=== PATIENT | male | born 1945 | race Caucasian/White ===

== ENCOUNTER → 2023-10-29 13:03 | Outpatient (REF) | payer OTHER, SELFPAY | LOC: RAD 13:03 | PROVIDERS: ATTENDING PHYSICIAN Thoracic Surgery (Cardiothoracic Vascular Surgery); FAMILY PHYSICIAN Nurse Practitioner Primary Care | DX: J90 Pleural effusion, not elsewhere classified (principal) | CPT/HCPCS: 71046 ==

== ENCOUNTER → 2024-02-25 12:28 | Outpatient (REF) | payer OTHER, SELFPAY ==
[2024-02-25 13:24] LABS: % Basophils 0.5 % (0-2); % Eosinophils 0.9 % (0-6); % Immature Granulocytes 0.3 % (0-0.5); % Lymphocytes 16.6 % (20.5-51.1); % Monocytes 10.7 % (1.7-9.3); Absolute Basophils 0.1 10^3/uL (0-0.2); Absolute Eosinophils 0.1 10^3/uL (0-0.7); Absolute Lymphocytes 1.8 10^3/uL (1.2-3.4); Absolute Monocytes 1.2 10^3/uL (0.1-0.6); Absolute Neutrophils 7.9 10^3/uL (1.4-6.5); Hematocrit 41.9 % (39.0-52.0); Hemoglobin 14.6 g/dL (13.0-18.0); Mean Corp Hgb Conc. 34.8 g/dL (33.0-37.0); Mean Corpuscular Hgb 31.2 pg (27.0-31.0); Mean Corpuscular Volume 89.5 fL (80.0-94.0); Mean Platelet Volume 9.8 fL (7.4-10.4); Nucleated Red Blood Cells % 0 % (-); Platelet Count 356 10^3/uL (130-400); Red Blood Cell Count 4.68 10^6/uL (4.70-6.10); Red Cell Dist. Width 14.2 % (11.5-14.5); White Blood Cell Count 11.1 10^3/uL (4.8-10.8)
[2024-02-25 14:59] LABS: ALT (SGPT) 46 U/L (0-50); AST (SGOT) 50 U/L (17-59); Alkaline Phosphatase 88 U/L (38-126); Blood Urea Nitrogen 21 mg/dl (9-20); Calcium 9.5 mg/dl (8.4-10.2); Carbon Dioxide 25 mmol/L (22-30); Chloride 99 mmol/L (98-107); Glucose 108 mg/dl (70-99); Potassium 4.5 mmol/L (3.5-5.1); Sodium 134 mmol/L (135-145); Total Bilirubin 1.3 mg/dl (0.2-1.3); eGFR > 60.00
[2024-02-25 15:16] LABS: Free T4 1.09 ng/dl (0.78-2.19); Vitamin D, 25-OH*** 48.5 ng/mL (30-80)
[2024-02-25 15:24] LABS: NT-proBNP 827 pg/ml
[2024-02-25 15:30] LABS: TSH 3.85 uIU/ml (0.47-4.68)
[2024-02-25 15:49] LABS: Vitamin B12 694 pg/ml (239-931)
== END ==
LOC: REG 12:28
PROVIDERS: ATTENDING PHYSICIAN Internal Medicine Cardiovascular Disease; FAMILY PHYSICIAN Nurse Practitioner Primary Care
DX: I50.20 Unspecified systolic (congestive) heart failure (principal); E78.2 Mixed hyperlipidemia; R42 Dizziness and giddiness; H93.13 Tinnitus, bilateral; E03.8 Other specified hypothyroidism; E55.9 Vitamin D deficiency, unspecified; G60.9 Hereditary and idiopathic neuropathy, unspecified
CPT/HCPCS: 36415; 80053; 82306; 82607; 83880; 84439; 84443; 85025; 86618

== ENCOUNTER → 2024-03-06 10:00 | Outpatient (REF) | payer OTHER, SELFPAY ==
[2024-03-06 12:30] LABS: % Basophils 0.7 % (0-2); % Eosinophils 3.3 % (0-6); % Immature Granulocytes 0.2 % (0-0.5); % Lymphocytes 33.2 % (20.5-51.1); % Monocytes 10.8 % (1.7-9.3); % Neutrophils 51.8 % (42.2-75.2); Absolute Basophils 0.1 10^3/uL (0-0.2); Absolute Eosinophils 0.3 10^3/uL (0-0.7); Absolute Lymphocytes 3.2 10^3/uL (1.2-3.4); Hematocrit 42.7 % (39.0-52.0); Hemoglobin 14.8 g/dL (13.0-18.0); Mean Corp Hgb Conc. 34.7 g/dL (33.0-37.0); Mean Corpuscular Hgb 31.4 pg (27.0-31.0); Mean Corpuscular Volume 90.5 fL (80.0-94.0); Mean Platelet Volume 10.4 fL (7.4-10.4); Nucleated Red Blood Cells % 0 % (-); Platelet Count 242 10^3/uL (130-400); Red Blood Cell Count 4.72 10^6/uL (4.70-6.10); Red Cell Dist. Width 14.3 % (11.5-14.5); White Blood Cell Count 9.6 10^3/uL (4.8-10.8)
== END ==
LOC: RAD 10:00
PROVIDERS: ATTENDING PHYSICIAN Nurse Practitioner Primary Care
DX: D72.829 Elevated white blood cell count, unspecified (principal)
CPT/HCPCS: 36415; 71046; 85025

== ENCOUNTER → 2024-05-01 11:04 | Outpatient (REF) | payer OTHER, SELFPAY ==
[2024-05-01 14:00] LABS: Uric Acid 7.3 mg/dl (3.5-8.5)
[2024-05-01 14:02] LABS: Protein/creatinine Ratio 0.2; Urine Protein 9 mg/dl
[2024-05-01 14:16] LABS: Erythrocyte Sed Rate 25 mm/hour (0-20)
[2024-05-04 02:12] LABS: ANA, IgG Reflex to HEp-2 None Detected (None Detected)
== END ==
LOC: REG 11:04
PROVIDERS: ATTENDING PHYSICIAN Nurse Practitioner Primary Care
DX: R42 Dizziness and giddiness (principal); R26.89 Other abnormalities of gait and mobility; G60.9 Hereditary and idiopathic neuropathy, unspecified; M75.91 Shoulder lesion, unspecified, right shoulder; M25.50 Pain in unspecified joint
CPT/HCPCS: 36415; 82570; 82784; 83521; 84155; 84156; 84165; 84550; 85652; 86038; 86140; 86334; 86430

== ENCOUNTER → 2024-05-01 11:41 | Outpatient (REF) | payer OTHER, SELFPAY | LOC: PAVMRI 11:41 | PROVIDERS: ATTENDING PHYSICIAN Nurse Practitioner Primary Care | DX: M89.9 Disorder of bone, unspecified (principal) | CPT/HCPCS: 73223; A9575 ==

== ENCOUNTER → 2024-05-21 12:35 | Outpatient (REF) | payer OTHER, SELFPAY ==
[2024-05-21 14:22] LABS: Blood Urea Nitrogen 21 mg/dl (9-20); Calcium 9.2 mg/dl (8.4-10.2); Carbon Dioxide 26 mmol/L (22-30); Chloride 100 mmol/L (98-107); Glucose 93 mg/dl (70-99); Potassium 4.4 mmol/L (3.5-5.1); Sodium 139 mmol/L (135-145); eGFR > 60.00
== END ==
LOC: RAD 12:35
PROVIDERS: ATTENDING PHYSICIAN Thoracic Surgery (Cardiothoracic Vascular Surgery); FAMILY PHYSICIAN Nurse Practitioner Primary Care
DX: Z95.2 Presence of prosthetic heart valve (principal); R06.02 Shortness of breath; Z01.818 Encounter for other preprocedural examination
CPT/HCPCS: 36415; 71260; 80048; Q9967

== ENCOUNTER 2024-07-31 10:40 | Emergency (ER) | payer OTHER, SELFPAY ==
--- NOTE | 2024-07-31 10:59 | ED.GENMED ---
History of Present Illness
General
Chief Complaint: Breathing Problem
Source: patient
Exam Limitations: none
Time Seen by Provider: 07/31/24 10:57
Nursing documentation reviewed up to this point in time: agreed with
History of Present Illness
History of Present Illness:
Patient is a 79-year-old male with history of congestive heart failure with reduced ejection fraction mitral valve replacement DVT paroxysmal A-fib presents to the ER for evaluation. Patient reports over the past 2 weeks he has had a 10 pound
weight gain and has noticed more shortness of breath and dyspnea on exertion. He denies any associated chest pain. He is normally on 40 mg Lasix per day however did speak with his stock handler floorperson Dr. Tolliver who advised him to take 80 mg a day. He has
taken 80 mg a day for the past 2 to 3 days without noticing a difference. Typically when he gets CHF he tends to have some swelling in his abdomen and not his legs he feels that his abdomen is mildly swollen however his legs again are not swollen.
He did take Lasix 40 mg today.
Past History
Past History
ED Past Medical History: Arrthythmia, HTN, Hypercholesterolemia and Valvular disease
ED Past Surgical History: Cardiac, Orthopedic and Other
Social History
Tobacco: Non-smoker
Review of Systems
Review of Systems
Allergies reviewed?: Yes
All Other Systems: ROS reviewed and negative except as documented in HPI and ROS
Constitutional: Reports weight gain
EENT: Reports no symptoms
Respiratory: Reports trouble breathing; Denies cough
Cardiac: Reports no symptoms; Denies chest pain, diaphoresis, palpitations or syncope
ABD/GI: Reports no symptoms
Musculoskeletal: Reports no symptoms
Skin: Reports no symptoms
Endocrine: Reports no symptoms
Psychiatric: Reports no symptoms
Phy Exam
General Physical Exam
General Presentation: no apparent distress
General age: appears stated age
General Skin: warm and dry
General Habitus: normal
General Mental: alert
General Hydration: appears well hydrated
Cardiovascular Exam
Cardiovascular Exam: regular rate/rhythm, no murmur and normal peripheral pulses
Pulmonary Exam
Pulmonary Exam: lungs clear, no respiratory distress and no crackles
Gastrointestinal Exam
Gastrointestinal Exam: soft and other (Abdomen is not distended)
Neurological Exam
Neurological Exam: alert and oriented x3
Musculoskeletal Exam
Musculoskeletal Exam: full ROM and other ( no l/e edema )
Skin Exam
Skin Exam: normal color and warm/dry
Psychiatric Exam
Psychiatric Exam: normal mood/affect
Scores
Heart Failure Risk
Heart Failure Risk Score: Not Applicable
Course
Orders/Labs/Results
Orders:
Orders
07/31/24 10:43
Electrocardiogram (*1) Urgent
Reason for Study: Chest Pain
EKG- Treatment ONCE
07/31/24 11:00
Cardiac Monitoring- Treatment ONCE
07/31/24 11:10
Complete Blood Count/With Diff Urgent
Comprehensive Metabolic Panel Urgent
Pro-BNP [NT-proBNP] Urgent
Troponin I Urgent
07/31/24 11:11
Chest [CR Chest - 2 Views ] Urgent
Comment:
Reason For Exam: sob
07/31/24 12:35
EKG- Treatment ONCE
Abnormal Lab Results
07/31/24
11:10
RBC 4.43 L 10^6/uL
(4.70-6.10)
MCH 32.1 H pg
(27.0-31.0)
RDW 14.8 H %
(11.5-14.5)
Absolute Monos (auto) 1.1 H 10^3/uL
(0.1-0.6)
Monocytes % 13.6 H %
(1.7-9.3)
Glucose 113 H mg/dl
(70-99)
07/31/24 11:10
07/31/24 11:10
Vital Signs
Initial and Last Documented VS:
Initial Vital Signs
Temp Pulse Resp Pulse Ox
98.0 F 85 18 98
07/31/24 10:45 07/31/24 10:45 07/31/24 10:45 07/31/24 10:45
Last Documented Vital Signs
Temp Pulse Resp BP Pulse Ox
98.0 F 75 12 147/86 97
07/31/24 10:45 07/31/24 13:15 07/31/24 13:15 07/31/24 13:00 07/31/24 12:00
MDM/Problems Addressed
Differential Diagnosis Includes:
Not limited to CHF
MDM/Problems Addressed:
Patient is a 71-year-old male with history of CHF mitral valve replacement presents to the ER for evaluation of 10 pound weight gain over the past 2 weeks and some dyspnea on exertion. Patient presents today awake alert no acute distress he has
nonhypoxic nontachypneic there is no lower extremity swelling there is no obvious edema to his abdomen. His lungs are clear he is not hypoxic. He denies any recent illness fever chills chest pain. He presents afebrile with a normal white count
stable hemoglobin of 14.2, cardiac troponin is normal BNP is 1310 and chest x-ray shows mild edema small bilateral effusions. Patient is amatory nonhypoxic. His Lasix dose was increased from 40 mg a day to 40 mg twice daily by cardiology and he
has been taking this over the past 3 days. Patient is very well-appearing we will have patient continue this dose as his kidney function is normal for the next several days and follow-up with cardiology as an outpatient next week. Case reviewed
with Dr. Cunningham .
Patient did take his Lasix this morning. As discussed with cardiology patient to take his Lasix 40 mg this evening with metolazone. This medication was sent to the pharmacy by the nurse practitioner of cardiology. Cardiology office will call
patient tomorrow for weight check and to check on patient.
I did review all instructions with patient and who are agreeable with plan of care
Chronic conditions affecting care:
chf,htn
*Radiology
Radiology exam reviewed: radiology read reviewed
*Pulse Oximetry
Patient hypoxic: no
*EKG
Interpreted by ED Provider?: Yes
Interpretation: normal
Heart Rate: 75
Rate: normal
Rhythm: sinus
Interval: first degree heart block
*Critical Care Note
Total Time (30-74mins, 75-104mins- exclusive of procedures): Not Applicable
Data Reviewed
Review of Other/Old Records Reveals: Labs and Radiology Studies
Source: patient and spouse
Patient Management
Discussion with other providers: It Analyst (Discussed with cardiology Dr. Cunningham and PAC Heidi Carter )
ED Attending Note
-
Portions of this chart may have been created with voice recognition software.� Occasional wrong word or��sound alike� substitutions may have occurred due to the inherent limitations of voice recognition software.
Discharge Plan
Departure
Patient Disposition: Home (Routine Discharge)
Date of Disposition: 07/31/24
Time of Disposition: 13:09
Patient with high blood pressure during this ER visit?: Yes
Condition: Fair
Covid-19: Not Applicable
Discharge Problem:
Congestive heart failure (CHF)
Instructions: *[facility] Heart Failure Instructions
Prescriptions:
New
metolazone 2.5 mg tablet
2.5 mg PO DAILY PRN (Reason: Heart Failure) Qty: 7 3RF
No Action
metoprolol succinate 25 mg Tablet Extended Release 24 Hr
25 mg PO BID Qty: 60 3RF
furosemide 40 mg tablet
40 mg PO DAILY
trazodone 50 mg Tablet
50 mg PO HS
garlic 100 mg Tablet
100 mg PO DAILY
meloxicam [Mobic] 7.5 mg Tablet
7.5 mg PO BID
Referrals:
Estephania Gaines CRNP [Family Provider] -
Activity Restrictions/Additional Instructions:
-Take metolazone 2.5 mg 30 min before your dose of Lasix 40 mg this evening, , 07/31/24.
-Continue to take Lasix 40 mg twice a day on Sunday morning and the cardiology office will call you on Sunday to check on you.
Return if any worsening of symptoms, including worsening shortness of breath , swelling or any concerns
Interventions
Interventions:
*Risk Screen - Suicide Last Done: 07/31/24 11:15
*General Assessment Last Done: 07/31/24 11:15
*Neglect/Abuse Screening Last Done: 07/31/24 11:15
ED- Fall Risk Assessment Last Done: 07/31/24 11:15
*ED COVID-19 Vaccine History Last Done: 07/31/24 11:15
ED- Cardiac Assessment Last Done: 07/31/24 11:15
ED- Pulmonary Assessment Last Done: 07/31/24 11:15
Discharge Date and Time
Print Language: SWEDISH
[2024-07-31 11:06] VITALS: BP 136/78
[2024-07-31 11:15] VITALS: BMI 27.7
[2024-07-31 11:27] VITALS: BP 117/58
[2024-07-31 11:34] LABS: % Basophils 0.6 % (0-2); % Eosinophils 2.2 % (0-6); % Immature Granulocytes 0.3 % (0-0.5); % Lymphocytes 21.3 % (20.5-51.1); % Monocytes 13.6 % (1.7-9.3); Absolute Basophils 0.1 10^3/uL (0-0.2); Absolute Eosinophils 0.2 10^3/uL (0-0.7); Absolute Lymphocytes 1.7 10^3/uL (1.2-3.4); Absolute Monocytes 1.1 10^3/uL (0.1-0.6); Absolute Neutrophils 4.8 10^3/uL (1.4-6.5); Hematocrit 40.9 % (39.0-52.0); Hemoglobin 14.2 g/dL (13.0-18.0); Mean Corp Hgb Conc. 34.7 g/dL (33.0-37.0); Mean Corpuscular Hgb 32.1 pg (27.0-31.0); Mean Corpuscular Volume 92.3 fL (80.0-94.0); Mean Platelet Volume 9.9 fL (7.4-10.4); Nucleated Red Blood Cells % 0 % (-); Platelet Count 246 10^3/uL (130-400); Red Blood Cell Count 4.43 10^6/uL (4.70-6.10); Red Cell Dist. Width 14.8 % (11.5-14.5); White Blood Cell Count 7.8 10^3/uL (4.8-10.8)
[2024-07-31 11:35] LABS: ALT (SGPT) 43 U/L (0-50); AST (SGOT) 43 U/L (17-59); Albumin 3.9 g/dl (3.5-5.0); Alkaline Phosphatase 74 U/L (38-126); Blood Urea Nitrogen 18 mg/dl (9-20); Calcium 8.7 mg/dl (8.4-10.2); Carbon Dioxide 27 mmol/L (22-30); Chloride 101 mmol/L (98-107); Estimated Creatinine Clearance 90 ml/min; Glucose 113 mg/dl (70-99); Potassium 4.1 mmol/L (3.5-5.1); Sodium 137 mmol/L (135-145); Total Bilirubin 0.9 mg/dl (0.2-1.3); Total Protein 6.9 g/dl (6.3-8.2); eGFR > 60.00
[2024-07-31 11:45] LABS: NT-proBNP 1310 pg/ml; Troponin I < 0.012 ng/ml
[2024-07-31 12:00] VITALS: BP 119/81
[2024-07-31 12:50] VITALS: BP 157/96
[2024-07-31 13:00] VITALS: BP 147/86
--- NOTE | 2024-07-31 13:15 | EDRN ---
Pt ambulated in w/ [facility] PCT and tolerated walk well w/POX 95-97% during ambulation. [facility] [place] ED PCT reported walk to Sylvie Lockhart NP.
== END 2024-07-31 13:40 | disposition home or self-care (01) ==
LOC: EMR 10:40
PROVIDERS: Nurse Practitioner; EMERGENCY PHYSICIAN Student in an Organized Health Care Education/Training Program; FAMILY PHYSICIAN Nurse Practitioner Primary Care
DX: I11.0 Hypertensive heart disease with heart failure (principal); I50.20 Unspecified systolic (congestive) heart failure; E78.00 Pure hypercholesterolemia, unspecified; I48.0 Paroxysmal atrial fibrillation; Z95.2 Presence of prosthetic heart valve; Z86.718 Personal history of other venous thrombosis and embolism; Z79.899 Other long term (current) drug therapy
CPT/HCPCS: 99285; 71046; 80053; 83880; 84484; 85025; 93005

== ENCOUNTER 2024-11-22 10:41 | Emergency (ER) | payer OTHER, SELFPAY ==
[2024-11-22] VITALS (10 sets, daily range): BP systolic 116–142; BP diastolic 75–104; BMI 27.0
[2024-11-22 11:09] LABS: % Basophils 0.5 % (0-2); % Eosinophils 2.6 % (0-6); % Immature Granulocytes 0.3 % (0-0.5); % Lymphocytes 30.2 % (20.5-51.1); % Monocytes 10.7 % (1.7-9.3); % Neutrophils 55.7 % (42.2-75.2); Absolute Basophils 0.1 10^3/uL (0-0.2); Absolute Eosinophils 0.2 10^3/uL (0-0.7); Absolute Lymphocytes 2.8 10^3/uL (1.2-3.4); Absolute Neutrophils 5.2 10^3/uL (1.4-6.5); Hematocrit 44.6 % (39.0-52.0); Hemoglobin 15.5 g/dL (13.0-18.0); Mean Corp Hgb Conc. 34.8 g/dL (33.0-37.0); Mean Corpuscular Volume 89.2 fL (80.0-94.0); Mean Platelet Volume 9.6 fL (7.4-10.4); Nucleated Red Blood Cells % 0 % (-); Platelet Count 238 10^3/uL (130-400); Red Cell Dist. Width 13.6 % (11.5-14.5); White Blood Cell Count 9.4 10^3/uL (4.8-10.8)
[2024-11-22 11:23] LABS: ALT (SGPT) 51 U/L (0-50); AST (SGOT) 48 U/L (17-59); Albumin 3.9 g/dl (3.5-5.0); Alkaline Phosphatase 83 U/L (38-126); Blood Urea Nitrogen 35 mg/dl (9-20); Calcium 9.1 mg/dl (8.4-10.2); Carbon Dioxide 35 mmol/L (22-30); Chloride 92 mmol/L (98-107); Glucose 129 mg/dl (70-99); Potassium 3.2 mmol/L (3.5-5.1); Sodium 137 mmol/L (135-145); Total Bilirubin 1.3 mg/dl (0.2-1.3); Total Protein 7.6 g/dl (6.3-8.2); eGFR > 60.00
[2024-11-22 11:35] LABS: NT-proBNP 717 pg/ml; Troponin I < 0.012 ng/ml
--- NOTE | 2024-11-22 15:37 | ED.GENMED ---
History of Present Illness
<Kumar Yoo DO - Last Filed: 11/22/24 15:41>
General
Chief Complaint: Breathing Problem
Source: patient and spouse
Time Seen by Provider: 11/22/24 12:42
History of Present Illness
History of Present Illness:
79-year-old male presents to the emergency room complaining of shortness of breath. Patient is feeling short of breath with exertion and with certain seated positions. Again this has been going on for weeks but seems somewhat worse today and the
patient is frustrated with the problem today. He does have a gold charmer that he sees. He has been prescribed Lasix and metolazone. He takes these depending upon his weight. No chest pain. No fever or chills. Patient feels like his weight is
stable.
Past History
<Kumar Yoo DO - Last Filed: 11/22/24 15:41>
Past History
ED Past Medical History: Arrthythmia, HTN, Hypercholesterolemia and Valvular disease
ED Past Surgical History: Cardiac, Orthopedic and Other
Social History
Tobacco: Non-smoker
Phy Exam
<Kumar Yoo DO - Last Filed: 11/22/24 15:41>
Physical Exam
Physical Exam:
General: Awake, Alert, Oriented X3. No acute distress.
Vitals: unremarkable
Head: Atraumatic
Eyes: Pupils equal, EOMI
Throat: Airway intact, no exudates
Neck: Trachea midline
Lungs: Clear and equal b/l
Heart: Regular rate, no murmurs
Abd: Soft, Nontender, No pulsatile mass
Neuro: Nonfocal
Skin: Warm, dry, no rash
Extremities: pulses equal b/l, trace edema
Scores
<Rajesh Ritter DO - Last Filed: 11/22/24 21:44>
Heart Failure Risk
Heart Failure Risk Score: Not Applicable
Course
<Kumar CaitlinRupal Yoo, DO - Last Filed: 11/22/24 15:41>
Orders/Labs/Results
Orders:
Orders
11/22/24 10:49
Electrocardiogram (*1) Urgent
Reason for Study: Shortness of Breath
EKG- Treatment ONCE
11/22/24 11:01
Complete Blood Count/With Diff Urgent
Comprehensive Metabolic Panel Urgent
NT-proBNP Urgent
Troponin I Urgent
11/22/24 13:35
US Abdomen Limited Urgent
Comment:
Reason For Exam: eval for extent of ascities
11/22/24 13:36
CR Chest - 2 Views Urgent
Comment:
Reason For Exam: sob
11/22/24 15:19
CT Chest PE Study Urgent
Comment:
Reason For Exam: sob,
11/22/24 18:47
Apixaban [Eliquis] 5 mg PO NOW STA
Furosemide [Lasix] 40 mg IV NOW STA
Potassium Chloride [KCl] 40 meq PO NOW STA
Abnormal Lab Results
11/22/24
11:01
Absolute Monos (auto) 1.0 H 10^3/uL
(0.1-0.6)
Monocytes % 10.7 H %
(1.7-9.3)
Potassium 3.2 L mmol/L
(3.5-5.1)
Chloride 92 L mmol/L
(98-107)
Carbon Dioxide 35 H mmol/L
(22-30)
BUN 35 H mg/dl
(9-20)
Glucose 129 H mg/dl
(70-99)
ALT 51 H U/L
(0-50)
11/22/24 11:01
11/22/24 11:01
Vital Signs
Initial and Last Documented VS:
Initial Vital Signs
Temp Pulse Resp BP Pulse Ox
97.8 F 64 16 139/83 97
11/22/24 10:46 11/22/24 10:46 11/22/24 10:46 11/22/24 10:46 11/22/24 10:46
Last Documented Vital Signs
Temp Pulse Resp BP Pulse Ox
98.4 F 90 19 116/100 98
11/22/24 16:00 11/22/24 19:17 11/22/24 19:17 11/22/24 19:17 11/22/24 17:00
<Rajesh Ritter, DO - Last Filed: 11/22/24 21:44>
Orders/Labs/Results
Orders:
Orders
11/22/24 10:49
Electrocardiogram (*1) Urgent
Reason for Study: Shortness of Breath
EKG- Treatment ONCE
11/22/24 11:01
Complete Blood Count/With Diff Urgent
Comprehensive Metabolic Panel Urgent
NT-proBNP Urgent
Troponin I Urgent
11/22/24 13:35
US Abdomen Limited Urgent
Comment:
Reason For Exam: eval for extent of ascities
11/22/24 13:36
CR Chest - 2 Views Urgent
Comment:
Reason For Exam: sob
11/22/24 15:19
CT Chest PE Study Urgent
Comment:
Reason For Exam: sob,
11/22/24 18:47
Apixaban [Eliquis] 5 mg PO NOW STA
Furosemide [Lasix] 40 mg IV NOW STA
Potassium Chloride [KCl] 40 meq PO NOW STA
Abnormal Lab Results
11/22/24
11:01
Absolute Monos (auto) 1.0 H 10^3/uL
(0.1-0.6)
Monocytes % 10.7 H %
(1.7-9.3)
Potassium 3.2 L mmol/L
(3.5-5.1)
Chloride 92 L mmol/L
(98-107)
Carbon Dioxide 35 H mmol/L
(22-30)
BUN 35 H mg/dl
(9-20)
Glucose 129 H mg/dl
(70-99)
ALT 51 H U/L
(0-50)
11/22/24 11:01
11/22/24 11:01
Vital Signs
Initial and Last Documented VS:
Initial Vital Signs
Temp Pulse Resp BP Pulse Ox
97.8 F 64 16 139/83 97
11/22/24 10:46 11/22/24 10:46 11/22/24 10:46 11/22/24 10:46 11/22/24 10:46
Last Documented Vital Signs
Temp Pulse Resp BP Pulse Ox
98.4 F 90 19 116/100 98
11/22/24 16:00 11/22/24 19:17 11/22/24 19:17 11/22/24 19:17 11/22/24 17:00
<Kumar H. Fredo DO - Last Filed: 11/22/24 15:41>
MDM/Problems Addressed
Differential Diagnosis Includes:
Heart failure, PE, anemia, deconditioning
MDM/Problems Addressed:
Patient concerned that he has ascites that needs to be removed. Chest x-ray shows no acute abnormality. An ultrasound of the abdomen shows no abdominal ascites. Labs show mild hypokalemia and some mild prerenal azotemia. His BN P is elevated at
717 but lower than most of his previous measurements. Overall I do not believe the patient appears to be in heart failure. Unclear why he feels dyspnea. Will obtain a CT of his chest to exclude PE.
<Rajesh Ritter, DO - Last Filed: 11/22/24 21:44>
*Critical Care Note
Total Time (30-74mins, 75-104mins- exclusive of procedures): 15
<Rajesh Ritter, DO - Last Filed: 11/22/24 21:44>
Update Note
Update Note:
Afternoon ER attending signout pending CT of the chest
6:[address] report noted prior records briefly reviewed reviewed with patient and family member he is in and out of A-fib's been off his anticoagulant he states due to bleeding risk from NSAID he takes for his shoulder reviewed that he is at high
risk for stroke he is amenable to go back on it I did review briefly with his outpatient gold charmer they will get him in the office early next week
ED Attending Note
<Kumar Yoo, DO - Last Filed: 11/22/24 15:41>
-
Portions of this chart may have been created with voice recognition software.� Occasional wrong word or��sound alike� substitutions may have occurred due to the inherent limitations of voice recognition software.
Discharge Plan
Departure
Patient Disposition: Home (Routine Discharge)
Date of Disposition: 11/22/24
Time of Disposition: 18:49
Patient with high blood pressure during this ER visit?: No
Condition: Good
Covid-19: Not Applicable
Discharge Problem:
Left atrial thrombus, Paroxysmal A-fib, Chronic systolic (congestive) heart failure
Instructions: Heart failure and atrial fibrillation, Medicines for atrial fibrillation, Atrial fibrillation - Discharge instructions, *[facility] Heart Failure Instructions
Prescriptions:
No Action
metoprolol succinate 25 mg Tablet Extended Release 24 Hr
25 mg PO BID Qty: 60 3RF
furosemide 40 mg tablet
40 mg PO DAILY
trazodone 50 mg Tablet
50 mg PO HS
garlic 100 mg Tablet
100 mg PO DAILY
meloxicam [Mobic] 7.5 mg Tablet
7.5 mg PO BID
metolazone 2.5 mg tablet
2.5 mg PO DAILY PRN (Reason: Heart Failure) Qty: 7 3RF
Referrals:
Estephania Gaines CRNP [Family Provider] -
Alireza Tolliver MD [Active] - Next open appointment
Activity Restrictions/Additional Instructions:
Restart Eliquis 5 mg twice a day
Limit your Motrin/meloxicam or other nonsteroidal type medications while taking Eliquis
Follow-up with Dr. Tolliver or his associates early next week
Return to the ER if any concerns
Interventions
Interventions:
*Risk Screen - Suicide Last Done: 11/22/24 10:49
*General Assessment Last Done: 11/22/24 12:57
*Neglect/Abuse Screening Last Done: 11/22/24 10:49
*ED- Fall Risk Assessment Last Done: 11/22/24 12:57
*ED COVID-19 Vaccine History Last Done: 11/22/24 12:57
*Nursing Disposition Last Done: 11/22/24 19:22
ED- Cardiac Assessment Last Done: 11/22/24 16:32
ED- Pulmonary Assessment Last Done: 11/22/24 16:32
Discharge Date and Time
Discharge Date/Time: 11/22/24 19:22
Print Language: SLOVAK
[2024-11-22] MEDS: LASIX 40 MG IV (18:59)
[2024-11-22] MEDS: KCL 40 MEQ PO (18:59)
[2024-11-22] MEDS: ELIQUIS 5 MG PO (18:59)
== END 2024-11-22 19:22 | disposition home or self-care (01) ==
LOC: EMR 10:41
PROVIDERS: Emergency Medicine; EMERGENCY PHYSICIAN Emergency Medicine; FAMILY PHYSICIAN Nurse Practitioner Primary Care
DX: I74.8 Embolism and thrombosis of other arteries (principal); I48.0 Paroxysmal atrial fibrillation; I11.0 Hypertensive heart disease with heart failure; I50.22 Chronic systolic (congestive) heart failure; E78.00 Pure hypercholesterolemia, unspecified; E87.6 Hypokalemia; Z79.899 Other long term (current) drug therapy
CPT/HCPCS: 96374; 99285; 71046; 71275; 76705; 80053; 83880; 84484; 85025; 93005; Q9967